=== PATIENT | male | born 1975 | race Caucasian/White ===

== ENCOUNTER 2025-06-18 09:58 | Outpatient (CLI) | payer OTHER, SELFPAY ==
--- NOTE | 2025-06-18 10:00 | CRLHL7_ITS ---
For Patients: As a result of the Century Cures Act, medical imaging exams and procedure reports are released immediately into your electronic medical record. You may view this report before your referring provider. If you have questions, please contact your health care provider. INDICATION: Chronic sinusitis. TECHNIQUE: High-resolution CT images of the paranasal sinuses were obtained without contrast. Multiplanar reconstructions. FINDINGS: Frontal: There is mild dependent mucosal thickening and/or trace of fluid in the posterior inferior frontal air cells with some narrowing of the inferior frontal recesses bilaterally. Ethmoid: Moderate mucosal thickening involves the bilateral anterior ethmoid air cells 3 mm or less. Sphenoid: The minor mucosal thickening at the anterior sphenoid ethmoidal recesses. Maxillary: Trace of dependent fluid in the right maxillary antrum. The 2 mm or less mucosal thickening in the inferior recesses and the right ostiomeatal unit. There is a 1 cm retention cyst based left maxillary antrum. There is a patent left maxillary antrostomy and uncinatectomy. Very mild curvature of the nasal septum. The posterior nasal fossa and nasopharynx are otherwise unremarkable. Middle ear cavities and mastoid air cells grossly clear. IMPRESSION: 1. Mild inflammatory mucosal thickening and trace of fluid noted in the maxillary frontal and anterior ethmoid sinuses the. The left. 2. Patent left maxillary antrostomy. Slight nasal septal curvature Please note that all CT scans at this facility use dose modulation, iterative reconstruction, and/or weight-based dosing when appropriate to reduce radiation dose to as low as reasonably achievable. Dictated by Tony Wright MD @ 06/20/2025 8:18:16 AM (Electronically Signed)
== END 2025-06-18 09:59 | disposition home or self-care (01) ==
LOC: CT 09:58
PROVIDERS: PCP Family Medicine; Visit Provider Otolaryngology
DX: J32.9 Chronic sinusitis, unspecified (principal); J32.0 Chronic maxillary sinusitis; J34.2 Deviated nasal septum
CPT/HCPCS: 70486

== ENCOUNTER 2025-07-09 10:07 | Outpatient (CLI) | payer OTHER, SELFPAY | END 2025-07-09 10:08 | disposition home or self-care (01) | PROVIDERS: PCP Family Medicine; Visit Provider Family Medicine | DX: Z13.1 Encounter for screening for diabetes mellitus (principal); Z12.5 Encounter for screening for malignant neoplasm of prostate; R68.82 Decreased libido; Z13.6 Encounter for screening for cardiovascular disorders | CPT/HCPCS: 80048; 80061; 84403; G0103 ==

== ENCOUNTER 2025-08-05 10:51 | Outpatient (CLI) | payer OTHER, SELFPAY ==
[2025-08-05 12:06] VITALS: BP 140/74; PULSE 116; RESP 16
--- NOTE | 2025-08-05 13:45 | W.PM.STED ---
Stress Test Note Date Date Seen: 08/05/25 Date of test: 08/05/25 Providers Primary care provider: Jose Medina Stress test physician: Moe Marlow Stress Test Note Stress test ordered: Exercise Stress Test Indication for test: Hyperlipidemia Results discussion: This pleasant gentleman presents for the above test, after discussion the risks benefits and side effects he would like to proceed. Pretest EKG shows ventricular rate of 61 with a blood pressure 110/74, no acute ST wave changes are noted. Standard Reji protocol is employed over a time course of 12 minutes, achieved a metabolic equivalent of 12.3 Mets with a maximum heart rate of 167, which is 113% of the target. Test is terminated because of fulfillment of protocol. During this test he had no subjective complaints, his exercise level was high. And conditioning was felt to be good, review of the tracing however did show some ST wave depression, of mm V3 through V6. And on average 2 mm to 3 and AVF. This occurred at peak exercise. And in recovery. Impression: Negative subjective, objectively positive stress test. Follow up suggested: Further testing on review of the stress test is needed, coupling this with an echo portion would be appropriate. Clinical correlation obviously will be needed with this. Follow-up with provider, left this testing facility in excellent condition.
== END 2025-08-05 12:08 | disposition home or self-care (01) ==
LOC: STRESS 10:52
PROVIDERS: PCP Family Medicine; Visit Provider Family Medicine
DX: E78.00 Pure hypercholesterolemia, unspecified (principal)
CPT/HCPCS: 93016; 93017

== ENCOUNTER 2025-08-26 14:05 | Outpatient (CLI) | payer OTHER, SELFPAY ==
[2025-08-26 14:55] VITALS: BP 136/82; PULSE 98; RESP 20; O2SAT 98
--- NOTE | 2025-08-26 15:08 | P.STN_ITS ---
Stress Test Note Date Date of test: 08/26/25 Providers Primary care provider: Jose Medina Stress test physician: Moe Marlow Stress Test Note Stress test ordered: Stress Echo Indication for test: Abnormal regular stress test Results discussion: Patient is a very nice gentleman who presented here for follow-up stress echo, after his regular treadmill test was positive, he had 2-3 mm of depression V3 through V6. He was asymptomatic with this however. In exercised to a high level. It was suggested that he had his undergo a stress echo to make sure that this was not a true positive. This very nice patient presents for the above test, after discussion the risks benefits and side effects of the test, patient would like to continue. Cardiac stress test medical history form is reviewed entirely. Pretest EKG shows normal sinus rhythm with the ventricular rate of 52 and a blood pressure [address] wave changes. He exercised for a total time of 13 minutes, and achieved a metabolic bone a 13.5 with a maximum heart rate of 168, which is 114% of the maximum, maximum blood pressure 1 80- 180, there was ST wave depression again through the precordial leads, with a maximum of 2.6 in V1. He recovered normally in was asymptomatic during exercise and recovery. Condition is felt to be excellent. Impression: Positive electrographic changes, seen in regular stress test also. Echo portion preliminary negative, by my review and also by the techs. Await final read by Cardiology. Follow up suggested: Await final read by Cardiology, clinical correlation with this will be needed, but I suspect this was a false positive electrographic portion. Patient recovered normally left this testing facility in good condition.
== END 2025-08-26 14:06 | disposition home or self-care (01) ==
PROVIDERS: PCP Family Medicine; Visit Provider Family Medicine
DX: R94.39 Abnormal result of other cardiovascular function study (principal)
CPT/HCPCS: 93016; 93325; 93351